=== PATIENT | male | born 1965 | race Caucasian/White ===

== ENCOUNTER 2016-10-03 04:28 | Emergency (ER) | payer OTHER ==
[2016-10-03] VITALS (7 sets, daily range): BP systolic 162–205; BP diastolic 91–121; PULSE 68–88; RESP 11–22; O2SAT 94–98
[~2016-10-03] VITALS: Ht 182.9 cm; Wt 100.0 kg
--- NOTE | 2016-10-03 04:31 | ED.REPORT ---
HPI-Chest Pain 40 and Over Date of Service Oct 03, 2016 ED Provider: Jeremiah Celaya MD A 51 year old male with no pertinent medical history [facility] the custody of [facility] complaining of chest pain that began 2 hours prior to arrival. Chest pain is associated with SOB and is exacerbated by deep inspiration. He currently takes 40 mg of Prozac per day. Patient denies any new onset calf swelling or tenderness. He denies history of PE. Nursing Notes Stated Complaint: CHEST PAIN Nursing Notes Reviewed: Yes Allergies: Coded Allergies: No Known Allergies (Unverified , 10/03/16) General Time Seen by MD: 04:29 Chief Complaint Chest pain Hx Obtained From: Police Arrived By: Police Sudden in Onset?: No Onset Occurred: 1 - 4 hours ago Symptom Duration: Since onset Location: : Chest left: Chest right Quality: Painful Radiation: : Does not radiate Migration/Movement: Reports: None Severity: Current: Mild Severity: Maximum: Mild Associated with: Reports: Shortness of Breath Pertinent Negative: Pt denies other symptoms Exacerbated by: Deep breath Recent Healthcare: No recent doctor visit, No recent hospitalization Risk Factors )( CAD Risk Stratification Risk factors reviewed )( TAD Risk Stratification Risk factors reviewed )( PE Risk Stratification Risk factors reviewed Past Medical History Past Medical History None reported. Past Surgical History None reported. Smoking History Former Smoker Social History [facility] Social History: Local resident Ambulatory Status Independent Review of Systems Respiratory: Reports: Shortness of breath Cardiovascular: Reports: Chest pain GI: Denies: Nausea, Vomiting Musculoskeletal: Denies: Extremity pain (No calf swelling), Extremity swelling (No calf tenderness), Joint pain, Joint swelling Complete sys rev & neg: except as marked. Physical Exam Initial Vital Signs Vital Signs (First) Date Time Temp Pulse Resp B/P Pulse Ox O2 Delivery O2 Flow Rate FiO2 10/03/16 04:34 36.6 88 20 205/121 97 Room Air Initial VS: Reviewed, Vital signs abnormal Head / Eyes: Atraumatic, Normocephalic, PERRL Extremities: Vascular intact, Neuro intact, No swelling (No calf swelling) , No tenderness (No calf tenderness) Skin: Warm, Dry, No cyanosis Psychiatric: Mood/affect normal, Behavior normal, Normal thought content General/Constitutional: Awake, Alert, No acute distress Respiratory / Chest: Atraumatic, Breath sounds NL, Breath sounds = bilat, No respiratory distress Cardiovascular: Heart rate NL, Regular rhythm, Heart sounds NL Abdomen: Atraumatic, Soft, Non-tender RESPIRATORY/CHEST: guarding with inspiration Neck: Atraumatic, Supple, No JVD Neurologic: Oriented X3, Speech NL, No motor deficits, No sensory deficits Movement Abnormality: Positive: Tremor Interpretation & Diagnostics Lab Results Interpretation Result Diagram: 10/03/16 0445 10/03/16 0445 Test 10/03/16 04:45 White Blood Count 16.8th/mm3 (3.8-10.1) Red Blood Count 4.65mil/mm3 (4.40-5.80) Hemoglobin 14.7g/dL (13.8-17.2) Hematocrit 42.1% (41.0-50.0) Mean Corpuscular Volume 90.5fL (81-100) Mean Corpuscular Hemoglobin 31.6pg (27.0-35.0) Mean Corpuscular Hemoglobin Concent 34.9% (32.0-37.0) Red Cell Distribution Width 12.8% (12.3-15.4) Platelet Count 204bil/L (150-400) Neutrophils (%) (Auto) 80.4% (40-74) Lymphocytes (%) (Auto) 10.2% (14-46) Monocytes (%) (Auto) 8.7% (4-12) Eosinophils (%) (Auto) 0.2% (0-5) Basophils (%) (Auto) 0.2% (0-3) D-Dimer 0.51mg/L FEU (<0.50) Sodium Level 137mEq/L (134-144) Potassium Level 4.4mEq/L (3.5-5.2) Chloride Level 100mEq/L (97-108) Carbon Dioxide Level 17mmol/L (18-29) Blood Urea Nitrogen 23mg/dL (6-24) Creatinine 0.71mg/dL (0.76-1.27) Estimat Glomerular Filtration Rate 125mL/min (>59) Glucose Level 134mg/dL (60-99) Calcium Level 9.6mg/dL (8.5-10.1) Magnesium Level 2.0mg/dL (1.6-2.6) Total Bilirubin 0.4mg/dL (0.0-1.2) Aspartate Amino Transf (AST/SGOT) 47U/L (0-50) Alanine Aminotransferase (ALT/SGPT) 44U/L (0-44) Alkaline Phosphatase 62U/L (25-150) Troponin T 0.010ug/L (0.0-0.011) Total Protein 8.0g/dL (6.4-8.4) Albumin 4.9g/dL (3.4-5.0) Hold Kvoacs Top Tube Received (Received) Lab Results Interpretation: White blood count, elevated nonfasting glucose ECG Interpretation ECG Interpretation: Sinus Rhythm Rate 85 Time: 04:32 Interpreted by: ED physician X-Ray Chest Interpretation Chest Xray Interpretation: IMPRESSION: Normal chest X-ray Interpretation / Wet Read by: Wet read ED physician Re-Eval/Medical Decision Med Decision/Clinical Course 51-year-old male who was arrested. He had chest pain while in shelter so was brought here for evaluation. White count is up. His d-dimer is marginally elevated at 0.051. Troponin is negative. EKG is normal. He is now set up to get a chest CT scan and a repeat troponin. His care is being turned over at change of shift to the oncoming physician. Time of Eval: 05:45 Patient Status: Condition improved Re-Evaluation/Progress Note: Patient is rechecked. His pain has improved and he is informed of his results. He understands and agrees with the plan to rule out PE. Counseled Regarding: Diagnosis, Lab results, Need for follow-up, When/why to return to ED Discharge & Departure Shift Change Sign-Out Patient Care Transferred: Yes Discussed Complaint(s): Yes Laboratory Evaluation: Lab evaluation discussed Imaging Studies: Ordered, not yet done Dr. Rae Disposition: [facility] Discharge Condition All VS Reviewed: Yes Condition: Stable Referrals: Michael Vizcaino MD (PCP) Care Transferred to: Dr. Rae Care Transferred at: 06:00 Scribe Attestation Portions of this note were transcribed by Kat Rojas. I, Dr. Celaya personally performed the history, physical exam and medical decision-making; I reviewed and confirmed the accuracy of the information in the transcribed note. Signed by: Cuate Peck, 10/03/16 1358. copies to: Michael Vizcaino MD, Howard L MD Oct 03, 2016 04:31 KAT ROJAS Oct 03, 2016 04:37
[2016-10-03] MEDS: MeTOProlol 1 mg/mL 5 mL Inj IVPUSH PRN ×3 (04:50→07:02)
[2016-10-03 04:54] LABS: BASOPHILS % (AUTO) 0.2 % (0-3); EOSINOPHILS % (AUTO) 0.2 % (0-5); MONOCYTES % (AUTO) 8.7 % (4-12); Mean Corpuscular Hemoglobin 31.6 pg (27.0-35.0); Mean Corpuscular Volume 90.5 fL (81-100); NEUTROPHILS % (AUTO) 80.4 % (40-74); Platelet Count 204 bil/L (150-400)
[2016-10-03 05:18] LABS: TROPONIN T 0.01 ug/L (0.0-0.011)
--- NOTE | 2016-10-03 08:05 | DRSVH ---
PROCEDURE: X-RAY CHEST ONE VIEW, PORTABLE ([id number]) INDICATIONS: chest pain, SOB TECHNIQUE: One view of the chest was acquired. COMPARISON: None. FINDINGS: Surgical changes and devices: None. Lungs and pleura: No pleural effusions or pneumothorax. Lungs are clear. Mediastinum: Mediastinal contours appear normal. Heart size is normal. Bones and chest wall: No suspicious bony lesions. Overlying soft tissues appear unremarkable. IMPRESSION: Normal examination. Dictated by: Ludwin Ortiz M.D. on 10/03/2016 at 8:03 Approved by: Ludwin Ortiz M.D. on 10/03/2016 at 8:04
--- NOTE | 2016-10-03 08:05 | DRSVH ---
PROCEDURE: CT ANGIO CHEST PULMONARY EMBOLISM ([id number]) INDICATIONS: chest pain, SOB elev dimer and WBC TECHNIQUE: After the administration of intravenous contrast, 2 mm thick sections acquired from the pulmonary api olimpia to the posterior costophrenic angles. 3-dimensional maximum intensity projection (MIP) coronal a nd sagittal reformats were then acquired through the thorax. For radiation dose reduction, the follo wing was used: automated exposure control, adjustment of mA and/or kV according to patient size. COMPARISON: [facility], CR, XR CHEST 1VW (PORTABLE), 10/03/2016, 5:02. FINDINGS: Image quality: Excellent. Pulmonary arteries: Pulmonary arteries are normal in size, and demonstrate no intraluminal filling d efects to suggest central pulmonary embolism. Lungs and pleura: Lungs are clear. No pleural effusions or pneumothorax. Central and peripheral ai rways are patent. Mediastinum: Heart size is normal, without pericardial effusion. No mediastinal or hilar adenopathy . Thoracic aorta is normal in caliber and enhancement. Esophagus is normal in caliber, without hiat al hernia. Bones and chest wall: No suspicious bony lesions. Ribs and thoracic spine appear intact throughout. Thyroid gland appears normal where well visualized. No axillary or supraclavicular adenopathy. Abdomen: Visualized upper abdominal solid organs appear normal in the early arterial phase of enhanc ement. IMPRESSION: No pulmonary embolus seen. Source of current symptoms is not found. Note: These findings are concordant with the preliminary interpretation. Dictated by: Ludwin Ortiz M.D. on 10/03/2016 at 8:01 Approved by: Ludwin Ortiz M.D. on 10/03/2016 at 8:03
== END 2016-10-03 07:35 ==
LOC: SED 04:28
DX: R07.2 Precordial pain (principal); I10 Essential (primary) hypertension; Z87.891 Personal history of nicotine dependence
CPT/HCPCS: 36415; 71010; 71275; 80053; 83735; 84484; 85025; 85378; 93005; 96374; 96376; 99285; Q9967